=== PATIENT | male | born 1995 | race Caucasian/White ===

== ENCOUNTER 2017-03-14 19:29 | Observation (INO) | payer MEDICAID ==
[~2017-03-14] VITALS: Ht 193 cm; Wt 135.0 kg
[2017-03-14 20:01] LABS: ADJUSTED CALCIUM 8.9 mg/dL (8.4-10.2); ALBUMIN 4.6 gm/dL (3.5-5.0); BILIRUBIN,TOTAL 0.4 mg/dL (0.0-1.0); CALCIUM 9.4 mg/dL (8.4-10.2); CREATININE, serum 1.53 mg/dL (0.66-1.25); TOTAL PROTEIN 7.8 gm/dL (6.4-8.2)
[2017-03-14 20:03] LABS: BASO % 0.7 % (0.0-2.0); GRAN # 2.5 (1.4-6.5); GRAN % 56.3 % (42.2-75.2); HEMATOCRIT 38.3 % (42.0-52.0); HEMOGLOBIN 12.6 g/dl (13.5-18.0); LYMPH # 1.4 (1.2-3.4); MEAN CELL VOLUME 86 fl (80.0-100.0); MEAN CORPUSCULAR HEMOGLOBIN 28 pg (27.0-31.0); MEAN CORPUSCULAR HGB CONC 33 g/dl (33.0-37.0); MEAN PLATELET VOLUME 9.8 fl (7.4-10.4); MONO # 0.5 (0.1-0.6); MONO % 10.8 % (1.7-9.3); PLATELET COUNT 230 K/mm3 (130-400); RED BLOOD COUNT 4.44 M/mm3 (4.20-5.60); REDCELL DISTRIBUTION WIDTH-CV 14.3 % (11.5-14.5); WHITE BLOOD COUNT 4.4 K/mm3 (4.8-10.8)
[2017-03-14] MEDS ORDERED: TRILEPTAL 150M150 MG PO (20:17)
[2017-03-14] MEDS ORDERED: KEPPRA250 MG PO (20:17)
[2017-03-14] MEDS ORDERED: ATIVAN 1MG T1 MG/TAB PO (21:09)
[2017-03-14] MEDS ORDERED: ZOLOFT 25MG25 MG PO (21:11)
[2017-03-14] MEDS ORDERED: KEPPRA 500MG500 MG PO (21:13)
[2017-03-14] MEDS ORDERED: VENTOLIN0.09 MG IH (21:14)
[2017-03-14] MEDS ORDERED: TRILEPTAL600 MG PO (21:14)
[2017-03-14 21:18] VITALS: BP 144/73; PULSE 86; TEMP 98
[2017-03-15 02:06] VITALS: BP 144/82; PULSE 97; TEMP 98.3
[2017-03-15 04:55] VITALS: BP 137/90; PULSE 88; TEMP 98.3
[2017-03-15 06:57] LABS: BASO % 0.5 % (0.0-2.0); GRAN # 1.6 (1.4-6.5); GRAN % 43.5 % (42.2-75.2); HEMATOCRIT 41.1 % (42.0-52.0); LYMPH # 1.7 (1.2-3.4); MEAN CELL VOLUME 87 fl (80.0-100.0); MEAN CORPUSCULAR HEMOGLOBIN 28 pg (27.0-31.0); MEAN CORPUSCULAR HGB CONC 32 g/dl (33.0-37.0); MEAN PLATELET VOLUME 9.7 fl (7.4-10.4); MONO # 0.4 (0.1-0.6); PLATELET COUNT 220 K/mm3 (130-400); RED BLOOD COUNT 4.72 M/mm3 (4.20-5.60); WHITE BLOOD COUNT 3.7 K/mm3 (4.8-10.8)
[2017-03-15 07:11] LABS: CREATININE, serum 1.13 mg/dL (0.66-1.25); POTASSIUM 3.9 mmol/L (3.4-5.0)
[2017-03-15 09:13] VITALS: BP 138/74; PULSE 77; TEMP 97.8
[2017-03-15 16:41] LABS: HEMATOCRIT 40.4 % (42.0-52.0); HEMOGLOBIN 12.9 g/dl (13.5-18.0)
[2017-03-15 18:00] VITALS: BP 117/88; PULSE 72; TEMP 98
[2017-03-15 19:35] VITALS: BP 172/83; PULSE 129
[2017-03-15 20:30] LABS: PROLACTIN 33.5 ng/mL (3.7-17.9)
[2017-03-15 21:58] VITALS: BP 125/59; PULSE 110; TEMP 98.2
[2017-03-15 22:08] LABS: CARBAMAZEPINE (TEGRETOL) 4.5 ug/mL (4.0-12.0)
[2017-03-16 01:29] VITALS: BP 114/62; PULSE 106; TEMP 98.7
[2017-03-16 05:19] VITALS: BP 133/68; PULSE 94; TEMP 97.6
== END 2017-03-16 07:24 | disposition left against medical advice (07) ==
LOC: COL.ER 19:29 → SDCO 20:29 → JCC 21:06 → SDCO 03-15 10:51 → JCC 03-15 10:51
PROVIDERS: Emergency Medicine; Nurse Practitioner Family; Surgery
DX: T18.5XXA Foreign body in anus and rectum, initial encounter (principal); F43.10 Post-traumatic stress disorder, unspecified; R56.9 Unspecified convulsions; J45.909 Unspecified asthma, uncomplicated; F17.210 Nicotine dependence, cigarettes, uncomplicated; R41.83 Borderline intellectual functioning; F90.9 Attention-deficit hyperactivity disorder, unspecified type; F94.1 Reactive attachment disorder of childhood; F84.0 Autistic disorder; F31.9 Bipolar disorder, unspecified
CPT/HCPCS: OP; 90791-AI; 99202; G0378; J1100; J1170; J2060; J2250; J2405; J2550; J2704; J2710; J3010; J7030; J7120

== ENCOUNTER 2017-03-16 07:56 | Observation (INO) | payer MEDICAID ==
[~2017-03-16] VITALS: Ht 182.9 cm; Wt 133.2 kg
[2017-03-16] VITALS (49 sets, daily range): BP systolic 110–147; BP diastolic 58–81; PULSE 88–114; TEMP 99.1; O2SAT 92–100
[~2017-03-16 07:56] MED LIST: ATIVAN 1MG T1 MG/TAB PO; KEPPRA 500MG500 MG PO; KEPPRA250 MG PO; TRILEPTAL 150M150 MG PO; TRILEPTAL600 MG PO; VENTOLIN0.09 MG IH; ZOLOFT 25MG25 MG PO
[2017-03-16 08:22] LABS: BASO % 0.2 % (0.0-2.0); GRAN # 3.6 (1.4-6.5); GRAN % 55.8 % (42.2-75.2); LYMPH # 2.1 (1.2-3.4); LYMPH % 32.6 % (20.0-51.0); MEAN CELL VOLUME 87 fl (80.0-100.0); MEAN CORPUSCULAR HGB CONC 32 g/dl (33.0-37.0); MEAN PLATELET VOLUME 9.4 fl (7.4-10.4); MONO # 0.7 (0.1-0.6); MONO % 11.1 % (1.7-9.3); PLATELET COUNT 211 K/mm3 (130-400); REDCELL DISTRIBUTION WIDTH-CV 14.5 % (11.5-14.5); WHITE BLOOD COUNT 6.5 K/mm3 (4.8-10.8)
[2017-03-16 08:25] LABS: HEMATOCRIT 36.7 % (42.0-52.0); HEMOGLOBIN 11.8 g/dl (13.5-18.0); MEAN CORPUSCULAR HEMOGLOBIN 28 pg (27.0-31.0)
[2017-03-16 08:35] LABS: ADJUSTED CALCIUM 8.8 mg/dL (8.4-10.2); ALBUMIN 4.2 gm/dL (3.5-5.0); BILIRUBIN,TOTAL 0.4 mg/dL (0.0-1.0); CREATININE, serum 1.06 mg/dL (0.66-1.25); POTASSIUM 3.5 mmol/L (3.4-5.0); TOTAL PROTEIN 7.1 gm/dL (6.4-8.2)
[2017-03-17] VITALS (324 sets, daily range): BP systolic 102–135; BP diastolic 59–102; PULSE 77–115; TEMP 97.6–98.6; O2SAT 83–100
[2017-03-17 13:51] LABS: AMPHETAMINE URINE NEGATIVE; BARBITURATES URINE NEGATIVE
[2017-03-17 13:52] LABS: BENZODIAZEPINES URINE POSITIVE; BUPRENORPHINE URINE NEGATIVE; METHADONE URINE NEGATIVE; OPIATES URINE NEGATIVE; OXYCODONE URINE NEGATIVE; PHENCYCLIDINE URINE NEGATIVE; PROPOXYPHENE URINE NEGATIVE; THC CANNABINOIDS URINE NEGATIVE
[2017-03-18 20:00] VITALS: PULSE 94; TEMP 98.7
[2017-03-19] VITALS (34 sets, daily range): BP systolic 102–131; BP diastolic 72–82; PULSE 94–115; TEMP 98.2–98.4; O2SAT 94–95
[2017-03-20] VITALS (247 sets, daily range): BP systolic 117–135; BP diastolic 67–108; PULSE 87–106; TEMP 97.5–98.2; O2SAT 82–100
[2017-03-20] MEDS ORDERED: RISPERDAL2 MG PO (13:21)
[2017-03-20] MEDS ORDERED: KEPPRA1000 MG PO (13:21)
== END 2017-03-20 14:25 ==
LOC: COL.ER 07:56 → ICU 10:52
PROVIDERS: Emergency Medicine; Internal Medicine
DX: G40.909 Epilepsy, unspecified, not intractable, without status epilepticus (principal); T18.5XXA Foreign body in anus and rectum, initial encounter; J45.909 Unspecified asthma, uncomplicated; F43.12 Post-traumatic stress disorder, chronic; F84.0 Autistic disorder; F79 Unspecified intellectual disabilities; F94.1 Reactive attachment disorder of childhood; F90.9 Attention-deficit hyperactivity disorder, unspecified type; F31.9 Bipolar disorder, unspecified; F41.9 Anxiety disorder, unspecified; E66.9 Obesity, unspecified; Z68.41 Body mass index [BMI] 40.0-44.9, adult
CPT/HCPCS: 90791-AI; 99223-AI; 99232-AI; 99239; G0378; J0330; J0690; J1200; J1953; J2060; J2405; J2704; J3010; J3230; J3486; J7030; J7120

== ENCOUNTER 2020-12-29 23:45 | Emergency (ER) | payer MEDICARE, MEDICAID ==
[~2020-12-29] VITALS: Ht 198.1 cm; Wt 160.9 kg
[~2020-12-29 23:45] MED LIST changes: +KEPPRA1000 MG PO; +RISPERDAL2 MG PO
[2020-12-29 23:50] VITALS: TEMP 98.7
[2020-12-30 00:29] LABS: BASO % 0.4 % (0.0-2.0); GRAN # 2.9 (1.4-6.5); GRAN % 58.2 % (42.2-75.2); HEMATOCRIT 40.4 % (42.0-52.0); HEMOGLOBIN 13.9 g/dl (13.5-18.0); LYMPH # 1.5 (1.2-3.4); LYMPH % 29.9 % (20.0-51.0); MEAN CELL VOLUME 92 fl (80.0-100.0); MEAN CORPUSCULAR HEMOGLOBIN 32 pg (27.0-31.0); MEAN CORPUSCULAR HGB CONC 34 g/dl (33.0-37.0); MEAN PLATELET VOLUME 9.3 fl (7.4-10.4); MONO # 0.6 (0.1-0.6); MONO % 11.1 % (1.7-9.3); PLATELET COUNT 193 K/mm3 (130-400); RED BLOOD COUNT 4.37 M/mm3 (4.20-5.60); REDCELL DISTRIBUTION WIDTH-CV 12.9 % (11.5-14.5)
[2020-12-30 00:35] LABS: CREATININE, serum 1.34 (0.66-1.25); POTASSIUM 3.5 mmol/L (3.4-5.0)
[2020-12-30 01:39] VITALS: BP 135/99; PULSE 80
== END 2020-12-30 01:40 | disposition short-term general hospital (02) ==
LOC: COL.ER 23:45
PROVIDERS: Emergency Medicine
DX: T18.198A Other foreign object in esophagus causing other injury, initial encounter (principal); I10 Essential (primary) hypertension; J45.909 Unspecified asthma, uncomplicated; G40.909 Epilepsy, unspecified, not intractable, without status epilepticus; F31.9 Bipolar disorder, unspecified; E66.9 Obesity, unspecified; Z88.6 Allergy status to analgesic agent; Z88.1 Allergy status to other antibiotic agents; Z88.5 Allergy status to narcotic agent; Z88.8 Allergy status to other drugs, medicaments and biological substances; Z90.49 Acquired absence of other specified parts of digestive tract; Z79.899 Other long term (current) drug therapy
CPT/HCPCS: J3010; Q9967